=== PATIENT | female | born 1995 | race Caucasian/White ===

== ENCOUNTER → 2021-04-05 | Outpatient (CLI) | payer MEDICAID ==
--- NOTE | 2021-04-05 14:54 | REP ---
INDICATION: ANATOMY. COMPARISON: None. TECHNIQUE: Real-time sonographic evaluation of the gravid uterus performed. FINDINGS: Estimated gestational age is22 weeks 0 days, EDC 08/09/2021. Today's measurements indicate appropriate growth. Presentation: Cephalic Placenta anterior, grade 1, without evidence of placenta previa. heart rate is recorded at 153 beats per minute. Amniotic fluid is subjectively normal. Closed cervical length is measured at 4.8 cm. Biometry chart: BPD: 53 mm, 22 weeks 0 days, 50th percentile. HC: 203 mm, 22 weeks 3 days, 62nd percentile AC: 172 mm, 22 weeks 1 days, 53rd percentile Femur length: 40 mm, 23 weeks 0 days, 77th percentile HC to AC ratio: 1.18, normal range 1.04-1.23. Estimated weight: 510g, 70th percentile. anatomy: Cranium: Grossly normal Lateral Ventricles/Choroid Plexus: Grossly normal Posterior Fossa/Cerebellum: Grossly normal Nose/lips/profile: Grossly normal Four chamber heart: Grossly normal, echogenic focus in the left ventricle is likely related to chordae tendineae. Right ventricular outflow tract: Grossly normal Left ventricular outflow tract: Grossly normal Left-sided stomach: Grossly normal Kidneys: There is mild bilateral hydronephrosis with each renal pelvis measuring 4 mm in AP dimension. Bladder: Grossly normal Cord Insertion: Grossly normal 3 vessel cord: Grossly normal Spine: Not well visualized due to position IMPRESSION: Viable single intrauterine gestation as above. Echogenic focus in the left ventricle likely related to chordae tendineae. Mild bilateral hydronephrosis. Spine is not well visualized due to position. Recommend follow-up. <Electronically signed by Chava Vaughn > 04/05/21 [id number]
== END ==
LOC: M WHC 12:58
PROVIDERS: ATTEND Specialist
DX: Z34.82 Encounter for supervision of other normal pregnancy, second trimester (principal); Z3A.22 22 weeks gestation of pregnancy

== ENCOUNTER → 2021-04-06 | Outpatient (REF) | payer MEDICAID | LOC: M PLALAB 07:51 | PROVIDERS: ATTEND Obstetrics & Gynecology | DX: Z36.89 Encounter for other specified antenatal screening (principal); Z3A.22 22 weeks gestation of pregnancy ==

== ENCOUNTER → 2021-04-29 | Outpatient (CLI) | payer OTHER ==
--- NOTE | 2021-05-01 05:12 | REP ---
INDICATION: F/U ANATOMY COMPARISON: 04/05/2021 TECHNIQUE: Transabdominal obstetrical ultrasound with color Doppler evaluation. FINDINGS: Examination demonstrates a single live intrauterine in cephalic presentation. motion is identified by technologist. Placenta is noted anterior and grade 0 without evidence for placenta previa or abruption. Amniotic fluid volume is normal. Cervix measures 3.9 cm in length and appears closed.. Selected gestational age: 25 weeks 3 days with KATHY 08/09/2021. Gestational age by current measurements 26 weeks 0 days with KATHY 08/05/2021. FHR equals 133 beats per minute. Estimated weight 884 grams (66thpercentile). Anatomical assessment demonstrates normal structures including spine, normal four-chamber heart (previously noted small echogenic focus not visualized on current exam). Mild bilateral renal pelviectasis appears to be upper limits of normal range (left greater than right). IMPRESSION: Single live intrauterine in cephalic presentation demonstrating appropriate estimated weight and growth. In conjunction with prior examination anatomical assessment is essentially complete and within normal limits. Mild bilateral renal pelviectasis is within normal range although follow-up examination may be warranted to exclude hydronephrosis. <Electronically signed by Micha Nogueira > 05/01/21 [id number]
== END ==
LOC: M WHC 09:13
PROVIDERS: ATTEND Obstetrics & Gynecology
DX: Z34.82 Encounter for supervision of other normal pregnancy, second trimester (principal)

== ENCOUNTER → 2021-05-18 | Outpatient (CLI) | payer OTHER ==
[2021-05-18 13:40] LABS: HEMATOCRIT 34.4 % (36.0-47.0); HEMOGLOBIN 11.9 g/dl (12.0-15.5); MEAN CORPUSCULAR HEMOGLOBIN 32.8 pg (27.0-33.0); MEAN CORPUSCULAR HGB CONC 34.6 g/dl (32.0-36.5); MEAN CORPUSCULAR VOLUME 94.8 fl (80.0-96.0); PLATELET COUNT, AUTOMATED 201 10^3/uL (150-450); RED BLOOD COUNT 3.63 10^6/uL (4.00-5.40); WHITE BLOOD COUNT 9.3 10^3/uL (4.0-10.0)
[2021-05-18 15:36] LABS: GC DNA AMPLIFICATION NEGATIVE (NEGATIVE)
== END ==
LOC: M PLALAB 08:54
PROVIDERS: ATTEND Obstetrics & Gynecology
DX: Z34.82 Encounter for supervision of other normal pregnancy, second trimester (principal); Z3A.22 22 weeks gestation of pregnancy

== ENCOUNTER → 2021-05-19 | Outpatient (REF) | payer OTHER, MEDICAID | LOC: M PLALAB 09:19 | PROVIDERS: ATTEND Obstetrics & Gynecology | DX: O99.810 Abnormal glucose complicating pregnancy (principal) ==

== ENCOUNTER → 2021-05-26 | Outpatient (CLI) | payer MEDICAID, OTHER ==
[~2021-05-26] MED LIST: PRENTAB9 PO; VALT500T PO
== END ==
LOC: M LAB 05-25 16:02
PROVIDERS: ATTEND Obstetrics & Gynecology
DX: O99.810 Abnormal glucose complicating pregnancy (principal); Z3A.00 Weeks of gestation of pregnancy not specified

== ENCOUNTER → 2021-05-30 | Outpatient (REF) | payer OTHER, MEDICAID | LOC: M SFHCWAGY 13:16 | PROVIDERS: ATTEND Obstetrics & Gynecology | DX: R30.0 Dysuria (principal) ==

== ENCOUNTER → 2021-06-14 | Outpatient (CLI) | payer OTHER, MEDICAID | LOC: M WHC 11:16 | PROVIDERS: ATTEND Obstetrics & Gynecology | DX: Z34.82 Encounter for supervision of other normal pregnancy, second trimester (principal); Z3A.32 32 weeks gestation of pregnancy ==

== ENCOUNTER → 2021-07-01 | Outpatient (REF) | payer OTHER, MEDICAID | LOC: M SFHCWAGY 13:10 | PROVIDERS: ATTEND Advanced Practice Midwife | DX: O34.211 Maternal care for low transverse scar from previous cesarean delivery (principal) ==

== ENCOUNTER 2021-07-11 00:08 | Inpatient (IN) | payer OTHER, MEDICAID ==
[~2021-07-11] VITALS: Ht 175.3 cm; Wt 86.3 kg
[2021-07-11] VITALS (37 sets, daily range): BP systolic 95–138; BP diastolic 51–78
[2021-07-11] MEDS ORDERED: VALT500T PO (00:18)
[2021-07-11] MEDS ORDERED: PRENTAB9 PO (00:18)
[2021-07-11] MEDS ORDERED: HOME MED LIST COMPLETE! XX SCH (00:20)
[2021-07-11] MEDS ORDERED: LACTATED RINGER'S 1000 ML IV STA (00:58)
[2021-07-11] MEDS ORDERED: LR 1,000 ML IV SCH ×2 (01:00→07:30)
[2021-07-11] MEDS ORDERED: CARBOPROST TROMETHAMINE 250 MCG/ML AMP IM PRN (01:00)
[2021-07-11] MEDS ORDERED: TRANEXAMIC ACID INJection 1,000 MG in NS 100 ML IV PRN (01:00)
[2021-07-11] MEDS ORDERED: METHYLERGONOVINE MALEATE 0.2 MG/ML VIAL (J2210) IM PRN (01:00)
[2021-07-11] MEDS ORDERED: ceFAZolin SOD 2 GM in IV 1 EA IV STA (01:04)
[2021-07-11] MEDS ORDERED: BETAMETHASONE SOLUSPAN 6MG/ML 5ML VIAL (J0702 PER 3MG) IM SCH (01:05)
--- NOTE | 2021-07-11 01:19 | HPEPDOC ---
Obstetrical History & Physical General Date of Admission Jul 11, 2021 at 00:57 History of Present Illness 25-year-old G3, P1011 at 35+6 weeks gestation. Presents with frequent, painful uterine contractions over the past several hours. She also believes her water broke at around 2100 on 07/10/2021. She denies any vaginal bleeding. Reports regular movement. ROS: no LOJA, cp, sob, fever/chills/nausea/vomiting. course: history of LTCS (gHSV outbreak); desires TOLAC history of gHSV; Valtrex 500mg BID. No outbreaks during this COVID+ in March 2021; no hospitalization. PMH: none SH: PLTCS, left breast lumpectomy, left leg/ortho?, D&C Meds: vitamin, Valtrex 500mg BID All: PCN (rash) TECHNICAL ARCHITECT: No STI or dysplasia OB: G1, 2016: MAB, D&C. G2, PLTCS d/t gHSV outbreak Sochx: No tobacco, alcohol or drug use FamHx: HTN labs: Blood type A+, antibody screen negative, HepBsAg neg, HIV neg, rubella immune, Hep C antibody negative, RPR nonreactive, CT/GC neg, urine culture negative, GDM screening negative, GBS unknown imaging: no anomalies or placental abnormalities Past Medical History Allergies Coded Allergies: amoxicillin (Verified Allergy, Unknown, 07/11/21) rash Medications Scheduled No.137/Iron/Folic Acd ( Vitamin Tablet) 1 Each Tablet, 1 TAB PO DAILY Valacyclovir HCl (Valtrex) 500 Mg Tablet, 500 MG PO BID Physical Examination Physical Examination GENERAL: Alert and oriented times three. ABDOMEN: Gravid and non-tender to touch. FETUS: Is vertex (VTX) by sterile vaginal examination (SVE), fetus is vertex (VTX) by [place]. HEART RATE: Regular rate and rhythm. LUNGS: Clear to auscultation (CTA). EXTREMITIES: No edema. No clonus. SVE: 4/90/-1, grossly ruptured/pooling, cephalic EFM: Cat I [place]: ctxs every 3-5 min Vital Signs/I&O Vital Signs Date Time Temp Pulse Resp B/P (MAP) Pulse Ox O2 Delivery O2 Flow Rate FiO2 07/11/21 00:25 98.3 67 16 128/74 (92) Assessment/Plan Assessment 25-year-old -0-1-1 at 35+6 weeks gestation. She is in active labor with ruptured membranes/clear fluid. Spontaneous onset. She is planning a trial of labor after . Reassuring maternal status. Plan Admit and orient. Hosiery Repairer and consent. Labs and intravenous (IV) per unit protocol. GBS prophylaxis with Ancef (mild penicillin allergy) Betamethasone started Patient has been counseled on trial of labor risk benefits indications and alternatives. She highly desires TOLAC Augment labor with Pitocin as needed DAI MULLEN DO Jul 11, 2021 01:19
[2021-07-11 01:29] LABS: HEMATOCRIT 33.5 % (36.0-47.0); HEMOGLOBIN 11.9 g/dl (12.0-15.5); MEAN CORPUSCULAR HEMOGLOBIN 31.6 pg (27.0-33.0); MEAN CORPUSCULAR HGB CONC 35.5 g/dl (32.0-36.5); MEAN CORPUSCULAR VOLUME 88.9 fl (80.0-96.0); PLATELET COUNT, AUTOMATED 204 10^3/uL (150-450); RED BLOOD COUNT 3.77 10^6/uL (4.00-5.40); WHITE BLOOD COUNT 15.7 10^3/uL (4.0-10.0)
[2021-07-11] MEDS ORDERED: FENTANYL 2MCG/ML ROPIVACAINE 0.2% IN 0.9% NACL 100ML IVBAG As Ordered ONE (02:37)
[2021-07-11] MEDS ORDERED: REFRIGERATOR IV KEYS XX PRN (03:30)
[2021-07-11] MEDS ORDERED: EPIDURAL/PCA KEYS XX PRN (03:30)
[2021-07-11] MEDS ORDERED: LACTATED RINGER'S 1000 ML IV PRN (03:30)
[2021-07-11] MEDS ORDERED: ePHEDrine SULFATE 25 MG/5 ML(5MG/ML) SYRINGE IV PRN (03:30)
[2021-07-11] MEDS ORDERED: NALOXONE INJ 0.4MG/1ML VIAL (J2310 PER 1MG) IV PRN (03:30)
[2021-07-11] MEDS ORDERED: EPIDURAL COMMENT XX SCH (03:30)
[2021-07-11] MEDS ORDERED: FENTANYL/ROPIVACAINE/NACL BAG 100 ML EPIDURAL SCH (03:30)
[2021-07-11] MEDS ORDERED: ONDANSETRON 4MG/2ML VIAL IV PRN ×2 (03:30→07:30)
[2021-07-11] MEDS ORDERED: diphenhydrAMINE 50MG/ML VIAL (J1200) IV PRN (03:30)
[2021-07-11] MEDS ORDERED: OXYTOCIN 30 UNITS IN 0.9% NaCl 500ML IV BAG (J2590) As Ordered ONE (05:05)
[2021-07-11] MEDS ORDERED: OXYTOCIN DRIP 30 UNITS in IV 1 EA IV SCH (07:30)
[2021-07-11] MEDS ORDERED: RHOGAM 300 MCG (1500 IU) INJ (J2790) IM SCH (07:30)
[2021-07-11] MEDS ORDERED: SIMETHICONE 80MG CHEW TAB PO PRN (07:30)
[2021-07-11] MEDS ORDERED: MEASLES,MUMPS,RUBELLA VACCINE INJ (MMR-II) (90707) SC SCH (07:30)
--- NOTE | 2021-07-11 07:46 | DNPDOC ---
[facility] Delivery Note Delivery Note DATE OF DELIVERY: 07/11/21 TIME OF DELIVERY: 716 Vaginal after () STAGECRAFT TEACHER: Dr. Prosper Rivera DO FACOG ANESTHESIA: Epidural LACERATION: none ESTIMATED BLOOD LOSS: 200 mL. FINDINGS: 6 pound 5 ounce (2870g) male infant, Score 8 and 9. DELIVERY SUMMARY: The active phase and second stage of labor progressed in normal fashion. She received Pitocin augmentation at the very end of her labor course. The head delivered in the CATALINO position, and restituted LOT. No nuchal cord was noted. The anterior shoulder delivered with gentle downward guidance and the remainder of the body delivered with ease. The baby was placed on the patient's chest. Delayed cord clamping occurred for approximately 1 minute. The cord was then doubly clamped and cut. IV Pitocin was bolused to actively manage the third stage of labor. The placenta delivered intact without any difficulty within 10 minutes of delivery. The uterine fundus was noted to be firm and 2 cm below the umbilicus. The cervix, vagina, vulva and perineum were inspected. No lacerations. Excellent hemostasis was noted. Sponge, needle and instrument counts were correct per protocol. DO STEVEN Colmenares JONATHAN R. DO Jul 11, 2021 07:46
[2021-07-11] MEDS ORDERED: ceFAZolin SOD 1 GM in D5W MINI-BAG PLUS 50 ML IV SCH (10:00)
[2021-07-11] MEDS: ACETAMINOPHEN 500 MG TAB PO PRN ×2 (11:04→22:23)
[2021-07-11] MEDS: PRENATAL VITAMINS CHEWABLE TABLET PO SCH (11:04)
[2021-07-11] MEDS: DOCUSATE SODIUM 100MG CAPSULE PO SCH ×2 (19:26→20:47)
[2021-07-11] MEDS: KETOROLAC 30 MG/ML 1ML VIAL IV SCH (23:53)
[2021-07-12] MEDS: KETOROLAC 30 MG/ML 1ML VIAL IV SCH (05:36)
[2021-07-12 06:00] VITALS: BP 105/59
[2021-07-12 06:25] LABS: HEMATOCRIT 31.1 % (36.0-47.0); HEMOGLOBIN 10.7 g/dl (12.0-15.5); MEAN CORPUSCULAR HEMOGLOBIN 31.6 pg (27.0-33.0); MEAN CORPUSCULAR HGB CONC 34.4 g/dl (32.0-36.5); MEAN CORPUSCULAR VOLUME 91.7 fl (80.0-96.0); PLATELET COUNT, AUTOMATED 193 10^3/uL (150-450); RED BLOOD COUNT 3.39 10^6/uL (4.00-5.40); WHITE BLOOD COUNT 18.3 10^3/uL (4.0-10.0)
[2021-07-12] MEDS ORDERED: DIBUCAINE 1% OINTMENT 30GM TOP PRN (08:30)
--- NOTE | 2021-07-12 08:31 | IPNPDOC ---
Progress Note Date of Service: Jul 12, 2021 Day#: 1 Progress Note SUBJECT: Doing well without complaints. Ambulating, voiding and pain is well- controlled. Reports minimal lochia. OBJECTIVE: VITAL SIGNS: Within normal limits, afebrile. Alert and oriented times three. Abdomen: Fundus firm at U-2. Soft, NTTP. Ext: neg calf tenderness. ASSESSMENT: day #1 status post . Recovering in stable condition. PLAN: 1. Continue routine care 2. Discharge plans for tomorrow VS, I&O, 24H, Fishbone Vital Signs/I&O Vital Signs Date Time Temp Pulse Resp B/P (MAP) Pulse Ox O2 Delivery O2 Flow Rate FiO2 07/12/21 06:00 99.0 66 14 105/59 (74) 98 Room Air I&O- Last 24 Hours up to 6 AM 07/12/21 06:00 Intake Total 1349.6 ml Output Total 1925 ml Balance -575.4 ml Laboratory Data 24H LABS Laboratory Tests 2 07/12/21 06:11: Nucleated Red Blood Cells % (auto) 0.0 CBC/BMP Laboratory Tests 07/12/21 06:11 REECE CALDERÓN MD. Jul 12, 2021 08:31
[2021-07-12] MEDS: DOCUSATE SODIUM 100MG CAPSULE PO SCH ×2 (08:40→20:27)
[2021-07-12] MEDS: PRENATAL VITAMINS CHEWABLE TABLET PO SCH (08:41)
[2021-07-12] MEDS: IBUPROFEN 800 MG TAB PO SCH ×2 (14:00→22:16)
[2021-07-12 18:00] VITALS: BP 115/57
[2021-07-13] MEDS: IBUPROFEN 800 MG TAB PO SCH ×2 (05:54→14:00)
[2021-07-13 06:00] VITALS: BP 111/62
[2021-07-13] MEDS: PRENATAL VITAMINS CHEWABLE TABLET PO SCH (08:05)
[2021-07-13] MEDS: DOCUSATE SODIUM 100MG CAPSULE PO SCH (08:05)
== END 2021-07-13 16:20 | disposition home or self-care (01) | DRG 560 ==
LOC: M LDO 00:08 → M LDI 00:57 → M OBS 10:10
PROVIDERS: ADMIT Obstetrics & Gynecology; ATTEND Obstetrics & Gynecology
PROC: 10E0XZZ Delivery of Products of Conception, External Approach (ICD-10-PCS; principal; 2021-07-11)
DX: O60.14X0 Preterm labor third trimester with preterm delivery third trimester, not applicable or unspecified (principal); O34.211 Maternal care for low transverse scar from previous cesarean delivery; Z37.0 Single live birth; Z3A.35 35 weeks gestation of pregnancy

== ENCOUNTER → 2022-09-15 | Outpatient (CLI) | payer MEDICAID, OTHER ==
[2022-09-15 14:17] LABS: HEMATOCRIT 36.9 % (36.0-47.0); HEMOGLOBIN 12.7 g/dl (12.0-15.5); MEAN CORPUSCULAR HEMOGLOBIN 31.8 pg (27.0-33.0); MEAN CORPUSCULAR HGB CONC 34.4 g/dl (32.0-36.5); MEAN CORPUSCULAR VOLUME 92.3 fl (80.0-96.0); PLATELET COUNT, AUTOMATED 208 10^3/uL (150-450); WHITE BLOOD COUNT 8.6 10^3/uL (4.0-10.0)
[2022-09-15 15:31] LABS: GC DNA AMPLIFICATION NEGATIVE (NEGATIVE)
[2022-09-15 15:58] LABS: HEPATITIS B SURFACE ANTIGEN NEGATIVE (NEGATIVE); HEPATITIS C VIRUS ABY INDEX < 0.0 INDEX (<0.8); HIV 1&2 SCREEN CENTAUR NEGATIVE (NEGATIVE)
== END ==
LOC: M PLALAB 10:00
PROVIDERS: ATTEND Specialist
DX: Z34.81 Encounter for supervision of other normal pregnancy, first trimester (principal)

== ENCOUNTER → 2022-09-18 | Outpatient (REF) | payer OTHER, MEDICAID | LOC: M SFHCWAGY 17:39 | PROVIDERS: ATTEND Specialist | DX: Z34.82 Encounter for supervision of other normal pregnancy, second trimester (principal) ==

== ENCOUNTER 2022-12-31 14:43 | Outpatient (CLI) | payer OTHER, MEDICAID ==
[~2022-12-31] VITALS: Ht 175.3 cm; Wt 83.7 kg
[2022-12-31 15:07] VITALS: BP 120/65
[2022-12-31] MEDS ORDERED: TUMS500C PO (15:08)
[2022-12-31] MEDS ORDERED: ONDA4TAB6 PO (15:09)
[2022-12-31] MEDS ORDERED: HOME MED LIST COMPLETE! XX SCH (15:15)
[2022-12-31] MEDS ORDERED: LR 1,000 ML IV ONE (15:20)
[2022-12-31 15:51] LABS: APPEARANCE, URINE MANUAL CLEAR (CLEAR); COLOR, URINE MANUAL YELLOW (YELLOW)
[2022-12-31 15:52] LABS: BILIRUBIN, URINE MANUAL 1+ (NEGATIVE); BLOOD URINE MANUAL NEGATIVE (NEGATIVE); GLUCOSE, URINE (UA) MANUAL NEGATIVE (NEGATIVE); KETONE, URINE MANUAL NEGATIVE (NEGATIVE); LEUKOCYTE ESTERASE, URINE MAN NEGATIVE (NEGATIVE); NITRITE, URINE MANUAL NEGATIVE (NEGATIVE); PROTEIN, URINE MANUAL NEGATIVE (NEGATIVE); UROBILINOGEN, URINE MANUAL 1 MG mg/dl (NORMAL)
== END 2022-12-31 17:19 | disposition home or self-care (01) ==
LOC: M LDO 14:43
PROVIDERS: ATTEND Obstetrics & Gynecology
DX: O26.893 Other specified pregnancy related conditions, third trimester (principal); R25.2 Cramp and spasm; R10.2 Pelvic and perineal pain; Z3A.29 29 weeks gestation of pregnancy
CPT/HCPCS: 59025; 76815; 81002; G0463

== ENCOUNTER → 2023-02-16 | Outpatient (REF) | payer OTHER, MEDICAID ==
[~2023-02-16] MED LIST changes: +ONDA4TAB6 PO; +TUMS500C PO
== END ==
LOC: M PLALAB 08:54
PROVIDERS: ATTEND Advanced Practice Midwife
DX: Z36.85 Encounter for antenatal screening for Streptococcus B (principal)

== ENCOUNTER → 2023-09-03 | Outpatient (REF) | payer OTHER, MEDICAID ==
[~2023-09-03] MED LIST changes: +LEXA1TAB PO
== END ==
LOC: M PLALAB 13:46
PROVIDERS: ATTEND Obstetrics & Gynecology
DX: Z12.4 Encounter for screening for malignant neoplasm of cervix (principal)

== ENCOUNTER → 2025-02-12 | Outpatient (CLI) | payer BC ==
[~2025-02-12] MED LIST changes: +ONDA-282 PO; -ONDA4TAB6 PO
== END ==
LOC: M WHC 08:35
PROVIDERS: ATTEND Advanced Practice Midwife
DX: Z53.9 Procedure and treatment not carried out, unspecified reason (principal)

== ENCOUNTER → 2025-02-12 | Outpatient (CLI) | payer BC | LOC: M PLALAB 09:19 | PROVIDERS: ATTEND Advanced Practice Midwife | DX: O34.211 Maternal care for low transverse scar from previous cesarean delivery (principal) ==

== ENCOUNTER → 2025-03-04 | Outpatient (REF) | payer BC | LOC: M PLALAB 15:03 | PROVIDERS: ATTEND Advanced Practice Midwife | DX: A60.04 Herpesviral vulvovaginitis (principal) ==

== ENCOUNTER → 2025-07-10 | Outpatient (REF) | payer BC | LOC: M SFHCWAGY 12:42 | PROVIDERS: ATTEND Advanced Practice Midwife | DX: O34.211 Maternal care for low transverse scar from previous cesarean delivery (principal); Z3A.00 Weeks of gestation of pregnancy not specified ==

== ENCOUNTER 2025-07-12 22:35 | Inpatient (IN) | payer BC ==
[~2025-07-12] VITALS: Ht 172.7 cm; Wt 91.0 kg
[2025-07-12] VITALS (13 sets, daily range): BP systolic 105–131; BP diastolic 55–73
[2025-07-12] MEDS ORDERED: ONDANSETRON 4MG 2ML VIAL IV PRN (23:20)
[2025-07-12] MEDS ORDERED: diphenhydrAMINE 50 MG/ML VIAL IV PRN (23:20)
[2025-07-12] MEDS ORDERED: LR 500 ML IV PRN (23:20)
[2025-07-12] MEDS ORDERED: NALOXONE INJ 0.4 MG/1 ML VIAL IV PRN (23:20)
[2025-07-12] MEDS ORDERED: LIDOCAINE 1% MDV 20 ML VIAL INFIL PRN (23:20)
[2025-07-12] MEDS ORDERED: EPIDURAL/PCA KEYS XX PRN (23:20)
[2025-07-12] MEDS ORDERED: METHYLERGONOVINE MALEATE 0.2 MG/ML 1 ML VIAL IM PRN (23:20)
[2025-07-12] MEDS ORDERED: TRANEXAMIC ACID INJection 1,000 MG in NS 100 ML IV PRN (23:20)
[2025-07-12] MEDS ORDERED: OXYTOCIN INJ 10UNITS/ML 1ML VIAL IM PRN (23:20)
[2025-07-12] MEDS ORDERED: CARBOPROST TROMETHAMINE 250 MCG/ML AMP IM PRN (23:20)
[2025-07-12] MEDS: FENTANYL/ROPIVACAINE/NACL BAG 100 ML EPIDURAL SCH (23:30)
[2025-07-13] VITALS (15 sets, daily range): BP systolic 99–142; BP diastolic 50–92; O2SAT 98
[2025-07-13 00:01] LABS: BASO # 0.0 10^3/uL (0.0-0.2); BASO % 0.2 % (0.0-1.0); EOS # 0.0 10^3/uL (0.0-0.5); EOS % 0.1 % (0.0-3.0); LYMPH # 1.7 10^3/uL (1.5-5.0); LYMPH % 13.5 % (24.0-44.0); MONO # 0.7 10^3/uL (0.0-0.8); MONO % 5.4 % (2.0-8.0); NEUTROPHILS # 9.7 10^3/uL (1.5-8.5); NEUTROPHILS % 79.8 % (36.0-66.0); PLATELET COUNT, AUTOMATED 210 10^3/uL (150-450)
[2025-07-13 00:22] LABS: HIV 1&2 SCREEN NEGATIVE (NEGATIVE)
[2025-07-13 00:30] LABS: HEPATITIS C VIRUS ABY INDEX < 0.02 INDEX (<0.8)
[2025-07-13] MEDS: LR 1,000 ML IV SCH (00:35)
[2025-07-13] MEDS: LACTATED RINGER'S 1000 ML IV STA (00:35)
[2025-07-13] MEDS: OXYTOCIN DRIP 30 UNITS in IV 1 EA IV PRN (02:13)
[2025-07-13] MEDS ORDERED: ONDANSETRON 4MG 2ML VIAL IV PRN (03:40)
[2025-07-13] MEDS ORDERED: DOCUSATE SODIUM 100 MG CAPSULE PO PRN (03:40)
[2025-07-13] MEDS ORDERED: IBUPROFEN 600 MG TAB PO PRN (03:40)
[2025-07-13] MEDS ORDERED: CALCIUM CARBONATE 500 MG CHEW U/D PO PRN (03:40)
[2025-07-13] MEDS ORDERED: DIBUCAINE 1% OINTMENT 30 GM TOP PRN (03:40)
[2025-07-13] MEDS ORDERED: ACETAMINOPHEN 325 MG TAB PO PRN (03:40)
[2025-07-13] MEDS ORDERED: RHOGAM 300MCG (1500IU) INJ IM SCH (03:40)
[2025-07-13] MEDS ORDERED: ANUSOL HC CREAM 30 GM TOP PRN (03:40)
[2025-07-13] MEDS: OXYTOCIN DRIP 30 UNITS in IV 1 EA IV SCH (03:40)
[2025-07-13] MEDS ORDERED: METHYLERGONOVINE MALEATE 0.2 MG TAB PO PRN (03:40)
[2025-07-13] MEDS: UNRESOLVED CLARIFICATION ENTRY XX STA (07:28)
[2025-07-13] MEDS: PRENATAL VITAMINS CHEWABLE TABLET PO SCH (07:33)
[2025-07-13] MEDS: IBUPROFEN 800 MG TAB PO PRN (15:07)
[2025-07-13] MEDS: ACETAMINOPHEN 500 MG TAB PO PRN (19:42)
[2025-07-14 05:44] VITALS: BP 98/57; O2SAT 100
[2025-07-15] MEDS ORDERED: MEASLES,MUMPS,RUBELLA VACCINE INJ (MMR-II) SC.IMMUN ONE (09:00)
== END 2025-07-14 14:13 | disposition home or self-care (01) | DRG 560 ==
LOC: M LDO 22:35 → M LDI 22:49 → M OBS 07-13 06:13
PROVIDERS: ADMIT Obstetrics & Gynecology; ATTEND Obstetrics & Gynecology
PROC: 10E0XZZ Delivery of Products of Conception, External Approach (ICD-10-PCS; principal; 2025-07-13)
DX: O34.211 Maternal care for low transverse scar from previous cesarean delivery (principal); Z37.0 Single live birth; Z3A.37 37 weeks gestation of pregnancy